=== PATIENT | female | born 1970 | race Hispanic/Latino ===

== ENCOUNTER → 2024-10-20 | Outpatient (CLI) | payer OTHER ==
--- NOTE | 2024-10-21 08:48 | HMCIMG ---
EXAM: CT Cardiac calcium scoring. CLINICAL HISTORY: Screening. TECHNIQUE: Thin collimated axial CT cardiac images were obtained. CT scan is done according to ALARA (As Low As Reasonably Achievable). CONTRAST: None. COMPARISON: None provided. FINDINGS: Calcium Score: VESSEL Number of lesions Volume mm3 Equi. Mass/mg Calcium score LM 2 129.2 - 158.6 LAD 0 0 - 0 LCX 4 45.9 - 65.2 RCA 2 14.4 - 21.0 Total 8 189.5 - 244.8 IMPRESSION: The total calcium score is 244.8. This score corresponds to the 99th percentile. /[place]
== END | disposition home or self-care (01) ==
LOC: RAH 13:02
PROVIDERS: ATTEND Family Medicine
DX: Z13.6 Encounter for screening for cardiovascular disorders (principal)
CPT/HCPCS: 75571